=== PATIENT | female | born 1985 | race Asian ===

== ENCOUNTER 2020-10-11 06:08 | Inpatient (IN) ==
[2020-10-11] MEDS ORDERED: Penicillin G Potassium IV 5,000,000 UNITS in NS 0.9% 100 ml BAG 100 ML IVPB ONE (07:23)
[2020-10-11] MEDS ORDERED: Buffered Lidocaine 1% SYRIN 1 ml INTRADERM ONE (07:23)
[2020-10-11] MEDS ORDERED: Lactated Ringers 1000 ml BAG 1,000 ML IV SCH ×2 (08:00→18:00)
[2020-10-11 08:23] LABS: ABS Eosinophils 0.2 10^3/ul (0-0.6); ABS Lymphocytes 1.6 10^3/ul (1.0-4.8); ABS Monocytes 0.8 10^3/ul (0-0.8); ABS Neutrophils 9.8 10^3/ul (1.5-7.7); Eosinophil % 1.7 %; Hematocrit 35 % (35-47); Lymphocyte % 12.6 %; Mean Corpuscular HGB Conc 34 g/dL (31-36); Mean Corpuscular Hemoglobin 29 pg (27-31); Mean Corpuscular Volume 87 fL (80-97); Mean Platelet Volume 9.6 fL (7.4-10.4); Platelet Count 230 10^3/uL (150-450); Red Blood Count 4.09 10^6 /uL (3.70-4.87); Red Cell Distribution Width 15 % (10-15); White Blood Count 12.4 10^3/uL (3.5-10.8)
[2020-10-11] MEDS: Lactated Ringers 1000 ml BAG 1,000 ML IV SCH ×2 (08:30→21:18)
[2020-10-11 08:46] LABS: Urine Benzodiazepine Screen None Detected (None Detect); Urine Cannabinoids Screen None Detected (None Detect); Urine Opiates Screen None Detected (None Detect)
[2020-10-11] MEDS: Penicillin G Potassium IV 3,000,000 UNITS in NS 0.9% 100 ml BAG 100 ML IVPB SCH ×3 (12:19→21:18)
[2020-10-11] MEDS ORDERED: Bupivacaine 0.25% SDV PF 10 ML VIAL INJ ONE (16:44)
[2020-10-11] MEDS ORDERED: OBEPIDURAL 250 ML EPIDURAL ONE (16:47)
[2020-10-11] MEDS ORDERED: Lidocaine 1% MPF 5 ML VIAL ONE (16:59)
[2020-10-11] MEDS ORDERED: Sodium Citrate/Citric Acid LIQ 15 ML UDC PO PRN (17:10)
[2020-10-11] MEDS ORDERED: Phenylephrine 40 mcg/mL 10mL (400mcg) SYRINGE IV PUSH PRN ×2 (17:10)
[2020-10-11] MEDS ORDERED: Lactated Ringers 1000 ml BAG 1,000 ML IV ONE (17:10)
[2020-10-11 18:43] LABS: Urine Appearance Clear; Urine Bilirubin Negative (Negative); Urine Blood Negative (Negative); Urine Color Yellow; Urine Glucose Negative (Negative); Urine Ketones 1+ (Negative); Urine Nitrite Negative (Negative); Urine Protein Negative (Negative); Urine Specific Gravity 1.017 (1.002-1.030); Urine Urobilinogen Negative (Negative)
[2020-10-11] MEDS ORDERED: Oxytocin in LR 20 UNITS/1,000 ML BAG IVPB ONE (23:01)
[2020-10-12] MEDS ORDERED: Oxytocin in LR 20 UNITS/1,000 ML BAG IVPB SCH ×2 (01:00→02:00)
[2020-10-12] MEDS: Penicillin G Potassium IV 3,000,000 UNITS in NS 0.9% 100 ml BAG 100 ML IVPB SCH (01:10)
[2020-10-12] MEDS ORDERED: Lactated Ringers 1000 ml BAG 1,000 ML IV SCH (02:00)
[2020-10-12] MEDS ORDERED: Glycerin ADULT 2.4 gm SUPP PR PRN (02:00)
[2020-10-12] MEDS: Witch Hazel PAD JAR TOPICAL PRN (02:32)
[2020-10-12] MEDS: Dibucaine 1% OINT 28.35 GM TUBE PR PRN (02:32)
[2020-10-12] MEDS ORDERED: Lidocaine 1% VIAL 10 MG/ML VIAL ONE (06:02)
[2020-10-12] MEDS ORDERED: Lidocaine 1% MPF 5 ML VIAL ONE (07:16)
[2020-10-13 08:31] LABS: ABS Eosinophils 0.2 10^3/ul (0-0.6); ABS Lymphocytes 1.7 10^3/ul (1.0-4.8); ABS Monocytes 1.1 10^3/ul (0-0.8); ABS Neutrophils 16.3 10^3/ul (1.5-7.7); Eosinophil % 0.8 %; Hematocrit 23 % (35-47); Hemoglobin 7.8 g/dL (12.0-16.0); Lymphocyte % 8.7 %; Mean Corpuscular HGB Conc 34 g/dL (31-36); Mean Corpuscular Hemoglobin 30 pg (27-31); Mean Corpuscular Volume 88 fL (80-97); Mean Platelet Volume 8.5 fL (7.4-10.4); Platelet Count 193 10^3/uL (150-450); Red Blood Count 2.63 10^6 /uL (3.70-4.87); Red Cell Distribution Width 15 % (10-15); White Blood Count 19.3 10^3/uL (3.5-10.8)
[2020-10-15 07:40] VITALS: BP 113/72
[2020-10-15 07:50] LABS: Hematocrit 21 % (35-47); Hemoglobin 7.1 g/dL (12.0-16.0); Mean Corpuscular HGB Conc 34 g/dL (31-36); Mean Corpuscular Hemoglobin 30 pg (27-31); Mean Corpuscular Volume 87 fL (80-97); Platelet Count 229 10^3/uL (150-450); Red Blood Count 2.35 10^6 /uL (3.70-4.87); Red Cell Distribution Width 15 % (10-15); White Blood Count 13.8 10^3/uL (3.5-10.8)
[2020-10-15] MEDS: OBEPIDURAL 250 ML EPIDURAL SCH ×2 (08:05→08:09)
[2020-10-15] MEDS: Penicillin G Potassium IV 3,000,000 UNITS in NS 0.9% 100 ml BAG 100 ML IVPB SCH ×2 (08:05→08:06)
[2020-10-15] MEDS ORDERED: Tetan/Diph/Pertus SYR(Tdap) 0.5 ML SYR(BOOSTRIX) use SYR contains LATEX IM ONE (09:07)
[2020-10-15] MEDS: Witch Hazel PAD JAR TOPICAL PRN (10:53)
[2020-10-15] MEDS: Dibucaine 1% OINT 28.35 GM TUBE PR PRN (10:53)
== END 2020-10-15 11:30 | disposition home or self-care (01) | DRG 542 ==
LOC: MCHOBOUT 06:08 → MCHOB 07:22
PROVIDERS: ADMIT Midwife; ATTEND Midwife

== ENCOUNTER 2024-02-26 12:20 | Inpatient (IN) ==
[2024-02-26] MEDS ORDERED: Lidocaine 1% VIAL 10 MG/ML 30 ML VIAL INJ PRN (12:56)
[2024-02-26] MEDS ORDERED: Buffered Lidocaine 1% SYRIN 1 ml INTRADERM ONE (12:56)
[2024-02-26] MEDS ORDERED: Lidocaine/Epinephrin 1.5%/200 5 ML AMP INJ ONE (13:09)
[2024-02-26] MEDS ORDERED: Phenylephrine 40 mcg/mL 10mL (400mcg) SYRINGE ONE (13:10)
[2024-02-26] MEDS: Lactated Ringers 1000 ml BAG 1,000 ML IV ONE (13:10)
[2024-02-26 13:19] LABS: ABS Eosinophils 0.1 10^3/uL (0.0-0.5); ABS Lymphocytes 1.4 10^3/uL (1.0-4.8); ABS Monocytes 0.5 10^3/uL (0.0-0.9); Eosinophil % 1.4 %; Hematocrit 37.7 % (35-45); Hemoglobin 13.1 g/dL (11.5-14.3); Lymphocyte % 15.5 %; Mean Corpuscular Hemoglobin 30.1 pg (27-33); Mean Corpuscular Hgb Conc 34.7 g/dL (31-36); Mean Corpuscular Volume 86.7 fL (80-97); Mean Platelet Volume 9.2 fL (7.5-11.2); Platelet Count 224 10^3/uL (150-450); Red Blood Count 4.35 10^6/uL (3.63-4.92); Red Cell Distribution Width 14.4 % (12-17)
[2024-02-26] MEDS: Penicillin G Potassium IV 5,000,000 UNITS in NS 0.9% 100 ml BAG 100 ML IVPB ONE (13:26)
[2024-02-26] MEDS: OBEPIDURAL (200 ML) 200 ML EPIDURAL ONE (13:58)
[2024-02-26] MEDS: Lactated Ringers 1000 ml BAG 1,000 ML IV SCH (13:58)
[2024-02-26] MEDS ORDERED: Lactated Ringers 1000 ml BAG 1,000 ML IV ONE (14:10)
[2024-02-26] MEDS ORDERED: Sodium Citrate/Citric Acid LIQ 15 ML UDC PO PRN (14:10)
[2024-02-26] MEDS ORDERED: Phenylephrine 40 mcg/mL 10mL (400mcg) SYRINGE IV PUSH PRN (14:10)
[2024-02-26] MEDS ORDERED: Lactated Ringers 1000 ml BAG 1,000 ML IV SCH (15:00)
[2024-02-26] MEDS ORDERED: OBEPIDURAL (200 ML) 200 ML EPIDURAL SCH (15:00)
[2024-02-26] MEDS: Phenylephrine 40 mcg/mL 10mL (400mcg) SYRINGE IV PUSH PRN (15:06)
[2024-02-26 16:27] LABS: Urine Appearance Turbid; Urine Bilirubin Negative (Negative); Urine Blood Negative (Negative); Urine Color Light-Yellow; Urine Glucose Negative (Negative); Urine Ketones Negative (Negative); Urine Nitrite Negative (Negative); Urine Protein Negative (Negative); Urine Specific Gravity 1.015 (1.002-1.030); Urine Urobilinogen Negative (Negative)
[2024-02-26 16:38] LABS: Urine Benzodiazepine Screen None Detected (None Detect); Urine Cannabinoids Screen None Detected (None Detect); Urine Opiates Screen None Detected (None Detect)
[2024-02-26] MEDS ORDERED: Oxytocin in LR 0 MILLI.UNIT/0 ML BAG IV ONE (17:13)
[2024-02-26] MEDS ORDERED: Glycerin ADULT 2.4 gm SUPP PR PRN (17:34)
[2024-02-26] MEDS: Dibucaine 1% OINT 28.35 GM TUBE PR PRN (18:26)
[2024-02-26] MEDS: Witch Hazel PAD JAR TOPICAL PRN (18:26)
[2024-02-27 09:02] LABS: ABS Eosinophils 0.1 10^3/uL (0.0-0.5); ABS Lymphocytes 2.2 10^3/uL (1.0-4.8); ABS Monocytes 0.8 10^3/uL (0.0-0.9); Eosinophil % 0.9 %; Hematocrit 30.8 % (35-45); Hemoglobin 10.6 g/dL (11.5-14.3); Lymphocyte % 15.5 %; Mean Corpuscular Hemoglobin 29.2 pg (27-33); Mean Corpuscular Hgb Conc 34.3 g/dL (31-36); Mean Platelet Volume 8.5 fL (7.5-11.2); Platelet Count 212 10^3/uL (150-450); Red Blood Count 3.62 10^6/uL (3.63-4.92); Red Cell Distribution Width 13.9 % (12-17); White Blood Count 14.1 10^3/uL (3.8-11.8)
[2024-02-28 08:15] VITALS: BP 112/62
== END 2024-02-28 15:18 | disposition home or self-care (01) | DRG 560 ==
LOC: MCHOBOUT 12:20 → MCHOB 13:02
PROVIDERS: ADMIT Midwife; ATTEND Midwife